=== PATIENT | male | born 1975 | race Caucasian/White ===

== ENCOUNTER → 2018-02-28 06:59 | Outpatient (CLI) | payer OTHER, SELFPAY ==
[2018-02-28 08:35] LABS: Microalbumin,Random Urine 5.2 mg/L (NO RANGE EST.); Microalbumin:Creatinine Ratio 3.4 mg/g CRE (<30 mg/g CRE)
[2018-02-28 08:38] LABS: Hemoglobin A1c 7.8 % (4.2-6.3)
[2018-02-28 08:40] LABS: AST(SGOT) 15 U/L (15-37); Alanine Aminotransfer ALT/SGPT 18 U/L (16-61); Albumin, Serum 3.6 g/dL (3.2-5.0); Alkaline Phosphatase 75 U/L (45-117); Anion Gap 6 (5-15); BUN 13 mg/dL (7-18); BUN/Creat Ratio 11.5 RATIO (10-20); Calcium,Total 8.7 mg/dL (8.5-10.1); Chloride 106 mmol/L (98-107); Cholesterol 164 mg/dL (200); Creatinine, Serum 1.13 mg/dL (0.70-1.30); EST Glomerular Filtration Rate 76 mL/min (>60); Est Glom Filt Rate - Afr Amer 92 mL/min (>60); Globulin 3.7 g/dL (2.2-4.2); Glucose 215 mg/dL (74-106); High Density Lipoprotein 47 mg/dL; Potassium 4.1 mmol/L (3.5-5.1); Protein, Total 7.3 g/dL (6.4-8.2); Sodium Level 139 mmol/L (136-145); Triglycerides 51 mg/dL; Very Low Density Lipoprotein 10 mg/dL (5-40)
== END ==
PROVIDERS: Family Provider Family Medicine; PCP Family Medicine; Visit Provider Nurse Practitioner
DX: E10.9 Type 1 diabetes mellitus without complications (principal)
CPT/HCPCS: 36415; 80053; 80061; 82043; 82306; 82570; 83036

== ENCOUNTER → 2018-05-29 06:34 | Outpatient (CLI) | payer OTHER, SELFPAY ==
[2018-05-29 07:48] LABS: ALB/GLOB Ratio 0.9 RATIO (0.9-2.4); AST(SGOT) 13 U/L (15-37); Alanine Aminotransfer ALT/SGPT 20 U/L (16-61); Albumin, Serum 3.5 g/dL (3.2-5.0); Alkaline Phosphatase 73 U/L (45-117); Anion Gap 5 (5-15); BUN 11 mg/dL (7-18); BUN/Creat Ratio 9.7 RATIO (10-20); Calcium,Total 8.6 mg/dL (8.5-10.1); Chloride 105 mmol/L (98-107); Creatinine, Serum 1.13 mg/dL (0.70-1.30); EST Glomerular Filtration Rate 76 mL/min (>60); Est Glom Filt Rate - Afr Amer 92 mL/min (>60); Globulin 3.8 g/dL (2.2-4.2); Glucose 225 mg/dL (74-106); Potassium 4.2 mmol/L (3.5-5.1); Protein, Total 7.3 g/dL (6.4-8.2); Sodium Level 139 mmol/L (136-145)
[2018-05-29 07:52] LABS: Hemoglobin A1c 7.9 % (4.2-6.3)
== END ==
PROVIDERS: Family Provider Family Medicine; PCP Family Medicine; Visit Provider Nurse Practitioner
DX: E10.9 Type 1 diabetes mellitus without complications (principal)
CPT/HCPCS: 36415; 80053; 83036

== ENCOUNTER → 2018-08-29 10:12 | Outpatient (CLI) | payer OTHER, SELFPAY | PROVIDERS: Family Provider Family Medicine; PCP Family Medicine; Referring Provider Nurse Practitioner; Visit Provider Nurse Practitioner | DX: E10.9 Type 1 diabetes mellitus without complications (principal) ==

== ENCOUNTER → 2018-12-05 06:57 | Outpatient (CLI) | payer OTHER, SELFPAY ==
[2018-09-01 08:33] VITALS: BMI 27.2
[2018-12-05 08:50] LABS: Hemoglobin A1c 8.5 % (4.2-6.3)
[2018-12-05 08:51] LABS: ALB/GLOB Ratio 0.9 RATIO (0.9-2.4); AST(SGOT) 17 U/L (15-37); Alanine Aminotransfer ALT/SGPT 24 U/L (16-61); Albumin, Serum 3.7 g/dL (3.2-5.0); Alkaline Phosphatase 79 U/L (45-117); Anion Gap 7 (5-15); BUN 16 mg/dL (7-18); BUN/Creat Ratio 13.3 RATIO (10-20); Calcium,Total 8.7 mg/dL (8.5-10.1); Chloride 105 mmol/L (98-107); Cholesterol 181 mg/dL (200); EST Glomerular Filtration Rate 71 mL/min (>60); Est Glom Filt Rate - Afr Amer 86 mL/min (>60); Globulin 3.9 g/dL (2.2-4.2); Glucose 223 mg/dL (74-106); High Density Lipoprotein 51 mg/dL; Potassium 4.3 mmol/L (3.5-5.1); Protein, Total 7.6 g/dL (6.4-8.2); Sodium Level 139 mmol/L (136-145); Triglycerides 48 mg/dL; Very Low Density Lipoprotein 10 mg/dL (5-40)
== END ==
PROVIDERS: Family Provider Family Medicine; PCP Family Medicine; Referring Provider Nurse Practitioner; Visit Provider Nurse Practitioner
DX: E10.9 Type 1 diabetes mellitus without complications (principal)
CPT/HCPCS: 36415; 80053; 80061; 83036

== ENCOUNTER → 2019-06-05 06:56 | Outpatient (CLI) | payer OTHER, SELFPAY ==
[2018-09-01 08:33] VITALS: BMI 27.2
[2019-06-05 08:15] LABS: Microalbumin,Random Urine 10.5 mg/L (NO RANGE EST.); Microalbumin:Creatinine Ratio 4.8 mg/g CRE (<30 mg/g CRE)
[2019-06-05 08:22] LABS: AST(SGOT) 13 U/L (15-37); Alanine Aminotransfer ALT/SGPT 22 U/L (16-61); Albumin, Serum 3.6 g/dL (3.2-5.0); Alkaline Phosphatase 80 U/L (45-117); Anion Gap 5 (5-15); BUN 16 mg/dL (7-18); BUN/Creat Ratio 14.2 RATIO (10-20); Calcium,Total 8.7 mg/dL (8.5-10.1); Chloride 107 mmol/L (98-107); Cholesterol 155 mg/dL (200); Creatinine, Serum 1.13 mg/dL (0.70-1.30); EST Glomerular Filtration Rate 76 mL/min (>60); Est Glom Filt Rate - Afr Amer 92 mL/min (>60); Globulin 3.7 g/dL (2.2-4.2); Glucose 142 mg/dL (74-106); High Density Lipoprotein 49 mg/dL; Protein, Total 7.3 g/dL (6.4-8.2); Sodium Level 142 mmol/L (136-145); Triglycerides 40 mg/dL; Very Low Density Lipoprotein 8 mg/dL (5-40)
[2019-06-05 08:24] LABS: Hemoglobin A1c 7.9 % (4.2-6.3)
[2019-06-07 10:17] LABS: Vitamin D,25 Hydroxy 23.6 ng/mL (29.95-100.01)
== END ==
PROVIDERS: Family Provider Family Medicine; PCP Family Medicine; Referring Provider Nurse Practitioner; Visit Provider Nurse Practitioner
DX: E11.9 Type 2 diabetes mellitus without complications (principal)
CPT/HCPCS: 36415; 80053; 80061; 82043; 82306; 82570; 83036

== ENCOUNTER → 2021-01-27 06:46 | Outpatient (CLI) | payer OTHER, SELFPAY ==
[2020-11-07 16:36] VITALS: BMI 27.8
[2021-01-27 07:46] LABS: Microalbumin,Random Urine 8.3 mg/L (NO RANGE EST.); Microalbumin:Creatinine Ratio 3.7 mg/g CRE (<30 mg/g CRE)
[2021-01-27 08:08] LABS: AST(SGOT) 18 U/L (15-37); Alanine Aminotransfer ALT/SGPT 22 U/L (16-61); Albumin, Serum 3.5 g/dL (3.2-5.0); Alkaline Phosphatase 76 U/L (45-117); Anion Gap 3 (5-15); BUN 11 mg/dL (7-18); BUN/Creat Ratio 9.9 RATIO (10-20); Calcium,Total 8.4 mg/dL (8.5-10.1); Chloride 105 mmol/L (98-107); Cholesterol 152 mg/dL (200); Creatinine, Serum 1.11 mg/dL (0.70-1.30); EST Glomerular Filtration Rate 77 mL/min (>60); Est Glom Filt Rate - Afr Amer 93 mL/min (>60); Globulin 3.4 g/dL (2.2-4.2); Glucose 123 mg/dL (74-106); High Density Lipoprotein 51 mg/dL; Protein, Total 6.9 g/dL (6.4-8.2); Sodium Level 138 mmol/L (136-145); Thyroid Stim Hormone (TSH) 2.64 uIU/mL (0.358-3.74); Triglycerides 40 mg/dL; Very Low Density Lipoprotein 8 mg/dL (5-40)
== END ==
PROVIDERS: PCP Family Medicine; Referring Provider Internal Medicine Endocrinology, Diabetes & Metabolism; Visit Provider Internal Medicine Endocrinology, Diabetes & Metabolism
DX: E10.9 Type 1 diabetes mellitus without complications (principal)
CPT/HCPCS: 36415; 80053; 80061; 82043; 82570; 84443

== ENCOUNTER → 2022-10-11 | Outpatient (CLI) | payer OTHER, SELFPAY ==
[2022-10-11 07:40] LABS: Microalbumin,Random Urine < 5.0 mg/L (NO RANGE EST.)
[2022-10-11 07:55] LABS: Vitamin D,25 Hydroxy 15.3 ng/mL
[2022-10-11 08:05] LABS: ALB/GLOB Ratio 0.9 RATIO (0.9-2.4); AST(SGOT) 14 U/L (15-37); Alanine Aminotransfer ALT/SGPT 27 U/L (16-61); Albumin, Serum 3.4 g/dL (3.2-5.0); Alkaline Phosphatase 68 U/L (45-117); Anion Gap 6 (5-15); BUN 15 mg/dL (7-18); BUN/Creat Ratio 12.8 RATIO (10-20); Calcium,Total 8.3 mg/dL (8.5-10.1); Chloride 106 mmol/L (98-107); Cholesterol 177 mg/dL (200); Creatinine, Serum 1.17 mg/dL (0.70-1.30); EST Glomerular Filtration Rate 72 mL/min (>60); Est Glom Filt Rate - Afr Amer 87 mL/min (>60); Globulin 3.8 g/dL (2.2-4.2); Glucose 140 mg/dL (74-106); High Density Lipoprotein 53 mg/dL; Potassium 3.8 mmol/L (3.5-5.1); Protein, Total 7.2 g/dL (6.4-8.2); Sodium Level 139 mmol/L (136-145); Thyroid Stim Hormone (TSH) 3.89 uIU/mL (0.358-3.74); Triglycerides 57 mg/dL; Very Low Density Lipoprotein 11 mg/dL (5-40)
== END | disposition home or self-care (01) ==
LOC: LAB 06:10
PROVIDERS: PCP Family Medicine; Referring Provider Internal Medicine Endocrinology, Diabetes & Metabolism; Visit Provider Internal Medicine Endocrinology, Diabetes & Metabolism
DX: E10.9 Type 1 diabetes mellitus without complications (principal); E55.9 Vitamin D deficiency, unspecified; Z96.41 Presence of insulin pump (external) (internal)
CPT/HCPCS: 36415; 80053; 80061; 82043; 82306; 82570; 84443

== ENCOUNTER → 2023-11-08 | Outpatient (CLI) | payer OTHER, SELFPAY ==
--- OUTSIDE RECORDS SUMMARY | 2023-11-08 07:08 | XMS RPT_ITS | CCD ---
Author Name Unknown Address [address] [facility] [address] [place] [address] Organization [facility] Care Team Providers Care [place] Records Management Officer Name Role Phone Vargas Dennis MD Primary Care Provider [phone] Vargas Dennis MD Primary Care Provider [phone] Rachel Bravo RN Unavailable Unavailable BARNEY CARMICHAEL Attending Unavailable BARNEY CARMICHAEL Primary Care Unavailable Allergies Allergy Classification Reported Allergen(s) Allergy Type Date of Onset Reaction(s) Facility (3 sources) Enalapril; Translations: [ENALAPRIL] Drug Allergy 06-09-2006 [facility] Work Phone: Medications Current Medications Medication Drug Class(es) Dates Sig (Normalized) Sig (Original) insulin lispro 100 unt/ml injectable solution (4 sources) Insulin Analog Start: 11-05-2022 End: 05-14-2024 HUMALOG U-100 INSULIN 100 unit/mL injection INJECT UP TO 100 UNITS DAILY VIA INSULIN PUMP 90 mL 1 05/15/2023 05/14/2024 Active Completed/Discontinued Medications Medication Drug Class(es) Dates Sig (Normalized) Sig (Original) acetaminophen 500 mg / diphenhydrAMINE hydrochloride 12.5 mg oral tablet (2 sources) Histamine-1 Receptor Antagonist Start: 06-13-2010 acetaminophen/dp -hydram hcl(TYLENOL SEVERE ALLERGY 12.5 MG-500 MG TAB) aspirin 81 mg oral tablet (2 sources) Platelet Aggregation Inhibitor, Nonsteroidal Anti-inflammatory Drug Start: 07-09-2005 take 1 tablet by mouth once daily ASPIRIN 81 MG ORAL TAB Take one (1) tablet daily . 0 07/09/2005 Active Problems Active Problems Problem Classification Problem Date Documented Date Episodic/Chronic Diabetes mellitus without complication (1 source) Type 1 diabetes mellitus without complications; Translations: [Diabetes mellitus type 1, controlled, without complications (HCC)] Onset: 10-31-2023 Chronic Other screening for suspected conditions (not mental disorders or infectious disease) (1 source) Encounter for screening for malignant neoplasm of colon; Translations: [Screening for colon cancer] Onset: 10-31-2023 Episodic Unclassified (2 sources) Type 1 diabetes mellitus without complication; Translations: [Uncontrolled type 1 diabetes mellitus without complication] Onset: 05-30-2016 05-30-2016 Past or Other Problems Problem Classification Problem Date Documented Da te Episodic/Chronic Abdominal pain (2 sources) Abdominal pain; Translations: [Unspecified abdominal pain] Onset: 10-28-2007 10-28-2007 Episodic Diabetes mellitus without complication (3 sources) Insulin pump present; Translations: [Presence of insulin pump (external) (internal)] Onset: 05-30-2016 05-30-2016 Episodic Other diseases of veins and lymphatics (2 sources) Varicocele; Translations: [Scrotal varices] Onset: 10-28-2007 10-28-2007 Episodic Results Test Name Value Interpretation Reference Range Facil ity Encounters Encounter Date Encounter Type Care Provider Facility Start: 10-31-2023 End: 10-31-2023 ambulatory [facility] Facility:[id number] Start: 10-31-2023 Encounter for genera l adult medical examination without abnormal findings [facility] Start: 08-21-2023 ambulatory [facility] Procedures Date Procedure Procedure Detail Performing Clinician Start: 05-06-2022 Hemoglobin A1c/Hemoglobin.total in Blood Zay Posada MD Work Phone: Start: 01-15-2021 Adult depression screening assessment Vargas Dennis MD Work Phone: Plan of Treatment Date Care Activity Detail Author Start: 05-09-2024 Urine microalbumin profile [facility] Start: 07-12-2023 Hepatitis C antibody , confirmatory test Dilated Retinal Exam [facility] Start: 06-13-2023 Covid-19 Vaccine () Covid-19 Vaccine () [facility] Start: 11-06-2022 Hemoglobin A1c/Hemoglobin.total in Blood HBA1C [facility] Start: 10-13-2022 Depression Assessment Depression Ass essment [facility] Start: 2022 Cologuard (FIT-DNA) Cologuard (FIT-D NA) [facility] Start: 2022 Colonoscopy Colonoscopy [facility] Start: 2022 Colorectal Cancer Screening Colorectal Cancer Screening [facility] Start: [address] [facility]: 2022 Fecal Occult Blood Fecal Occult Bloo d [facility] Start: 2022 Sigmoidoscopy Sigmoidoscopy [facility] Start: 06-20-2022 Hepatitis C antibody , confirmatory test DILATED RETINAL EXAM [facility] Start: 06-13-2022 Influenza vaccination INFLUENZA (#1) [facility] Start: 01-15-2022 Adult depression scr eening assessment DEPRESSION SCREENING [facility] Start: 01-15-2022 ANNUAL PCP TEAM SNOW REMOVAL/PLOWING HUDSON DISEASE VISIT ANNUAL PCP TEAM CHRONIC DISEASE VISIT [facility] Start: 04-14-2021 COVID-19 VACCINE (3 - Booster for Moderna series) COVID-19 VACCINE (3 - Booster for Moderna series) [facility] Start: 06-05-2020 Hepatitis B screening URINE AL BUMIN:CREATININE RATIO [facility] Start: 12-05-2019 Hepatitis B surface antibody level LDL CHOLESTEROL [facility] Start: 10-16-2018 3 comp foot exam completed DIABETIC FOOT EXAM [facility] Start: 1996 HEPATITIS B (1 of 3 - Risk 3-dose series) HEPATITIS B (1 of 3 - Risk 3-dose series) [facility] Start: 1995 HEPATITIS C SCREENING HEPATITIS C SC REENING [facility] Start: 1995 HIV SCREENING HIV SCREENING [facility] Start: 1983 PNEUMOCOCCAL (1 - PCV) PNEUMOCOCCAL (1 - PCV) [facility] Start: 1983 Pneumococcal vaccination Pneum ococcal Vaccine (1 - PCV) [facility] Start: 1977 Hepatitis B Vaccine (1 of 3 - 3-dose series) Hepatitis B Vaccine (1 of 3 - 3-dose series) [facility] Immunizations Immunization Date Immunization Notes Care Provider Fa demetrio 07-21-2023 influenza virus vaccine, unspecified formulation Rachel Bravo RN [facility] 07-29-2022 influenza virus vaccine, unspecified formulation Rachel Bravo RN [facility] 07-19-2021 influenza virus vaccine, unspecified formulation Vargas Dennis MD Work Phone: [facility] 11-15-2020 COVID-19 vaccine, fu ll dose (MODERNA) Vargas Dennis MD Work Phone: [facility] 10-18-2020 COVID-19 vaccine, fu ll dose (MODERNA) Vargas Dennis MD Work Phone: [facility] 05-09-2014 tetanus toxoid, reduced diphtheria toxoid, and acellular pertussis vaccine, adsorbed Vargas Dennis MD Work Phone: [facility] 08-17-2008 influenza virus vaccine, unspecified formulation Vargas Dennis MD Work Phone: [facility] Work Phone: 08-26-2007 influenza virus vaccine, unspecified formulation Vargas Dennis MD Work Phone: [facility] Work Phone: 08-14-2006 influenza virus vaccine, unspecified formulation Vargas Dennis MD Work Phone: [facility] Work Phone: 04-26-2001 diphtheria and tetan us toxoids, adsorbed for pediatric use Vargas Dennis MD Work Phone: [facility] Work Phone: Payers Date Payer Category Payer Unknown [id number] 2021 Unknown [employer] P[employer] [id number] 2021-Present [phone] [address] [place] [address] PPO [id number] 2020 Unknown [employer] [facility] [employer] [employer] [id number] 2020-Present [phone] [address] [place] [address] PPO [id number] Social History Date Type Detail Facility Start: 10-28-2007 [facility] History of tobacco use Chews Tobacco [facility] Start: 01-15-2021 Alcohol intake Current drinke r of alcohol (finding) [facility] Start: 10-28-2007 Tobacco Comment quiting 10/22/07 [facility] Start: 1975 Sex Assigned At Not on file [facility] Start: 10-28-2007 Tobacco use and exposure Smokeless tobacco non-user [facility] Work Phone: Start: 09-20-2020 End: 01-15-2021 History of Social function [facility] Start: 09-20-2020 End: 01-15-2021 Tobacco use panel [facility] Adult Depression Screening Assessment 0 [facility] Medical Equipment Procedure Code Equipment Code Equipment Origin al Text Equipment Identifier Dates Testing blood perry gars 6 times daily. Diabetes Dx 250.03 Start: 05-30-2016 Goals Date Patient Goal Desired Activity /State Personal health goal Progress note 10-31-2023 Note Date & Type Note Facility 10-31-2023 Note HNO ID: [id number] Author: BARNEY CARMICHAEL MD Service: ? Author Type: Physician Type: Progress Notes Filed: 10/31/2023 10:14 Note Text: SUBJECTIVE: Kris Damon is a 48 year old male here today for an annual physical. I reviewed his past medical, surgical, social, and family histories today and updated chart. Allergies, chronic medications, and supplements were also reviewed and his list in the chart is now up to date. Concern(s) today include: Patient establishing care today. History of type 1 diabetes and does use an insulin pump at the direction of his oleo hasher and renderer. He has a full panel of blood work done every year in October and will have this done in the next few days. He follows up routinely with his oleo hasher and renderer. No other major medical history. Takes no other routine medications. He denies any additional concerns at this time. His medications were reviewed today and his list is now up to date. He is compliant on taking his medications :Yes He is tolerating his medication(s) without side effects: Yes He is following an appropriate diet for his medical problems: Yes He is getting some exercise in? Yes Social History Tobacco Use Smoking status: Never Smokeless tobacco: Never Tobacco comments: quiting 10/22/07 Vaping Use Vaping Use: Never used Substance Use Topics Alcohol use: Yes Comment: occasionally Drug use: No Review of Systems Constitutional: Negative for chills, fatigue and fever. HENT: Negative for congestion, ear pain, postnasal drip, rhinorrhea, sinus pressure and sore throat. Respiratory: Negative for cough, chest tightness, shortness of breath and wheezing. Cardiovascular: Negative for chest pain, palpitations and leg swelling. Gastrointestinal: Negative for abdominal pain, constipation, diarrhea, nausea and vomiting. Endocrine: Negative for cold intolerance and heat intolerance. Neurological: Negative for dizziness, seizures, syncope, speech difficulty, weakness, numbness and headaches. All other systems reviewed and are negative. BP 136/82 (BP Site: Left Arm, BP Position: Sitting, BP Cuff Size: Regular Adult) Pulse 81 Ht 177.8 cm (5' 10 ) Wt 85.7 kg (189 lb) SpO2 98% BMI 27.12 kg/m? Physical Exam Vitals and nursing note reviewed. Constitutional: Appearance: He is well-developed. Cardiovascular: Rate and Rhythm: Normal rate and regular rhythm. Heart sounds: Normal heart sounds. Pulmonary: Effort: Pulmonary effort is normal. Breath sounds: Normal breath sounds. No wheezing or rales. ASSESSMENT/PLAN: 1. Well adult exam - ICD9: V70.0, ICD10: Z00.00 (primary diagnosis) - Counseled on healthy diet and regular exercise - Will obtain labs from his oleo hasher and renderer, health maintenance current, ordered cologuard - Follow up for annual exam in one year 2. Diabetes mellitus type 1, controlled, without complications (HCC) - ICD9: 250.01, ICD10: E10.9 - Mgmt per endo 3. Insulin pump status - ICD9: V45.85, ICD10: Z96.41 4. Screening for colon cancer - ICD9: V76.51, ICD10: Z12.11 - COLOGUARD This dictation was completed with the assistance of voice recognition, phonetic or minor grammatical errors may exist. Barney Carmichael MD [facility] Progress note 08-26-2023 Note Date & Type Note Facility 08-26-2023 Note HNO ID: [id number] Author: Rachel Bravo RN Service: ? Author Type: Registered Nurse Type: Progress Notes Filed: 08/26/2023 11:25 AM Note Text: Kris Damon is a 48 year old male who presents for a Direct Primary Care Organizing Visit. Complaints: denies any complaints at this time Explained DPC Program: Yes Reviewed Contract: Yes Vitals Completed: There were no vitals taken for this visit. PAST MEDICAL HISTORY Diagnosis Date Type I (juvenile type) diabetes mellitus without mention of complication, uncontrolled (HCC) Health Maintenance: Hepatitis B Vaccine(1 of 3 - 3-dose series) Never done Pneumococcal Vaccine(1 - PCV) Never done Hepatitis C Screening Never done HIV Screening Never done Diabetic Foot Exam due on 10/16/2018 LDL Cholesterol due on 12/05/2019 Urine Albumin:Creatinine Ratio due on 06/05/2020 Annual PCP Team Chronic Disease Visit due on 01/15/2022 Colorectal Cancer Screening Never done Depression Assessment Never done HbA1C due on 11/06/2022 Covid-19 Vaccine() due on 06/13/2023 Dilated Retinal Exam due on 07/12/2023 Current Outpatient Medications Medication Sig Dispense Refill loratadine (CLARITIN) 10 mg tablet Take 10 mg by mouth once daily. HUMALOG U-100 INSULIN 100 unit/mL injection INJECT UP TO 100 UNITS DAILY VIA INSULIN PUMP 90 mL 1 HUMALOG U-100 INSULIN 100 unit/mL injection USES UP TO 100 UNITS A DAY VIA INSULIN PUMP 90 mL 1 insulin lispro (HUMALOG) 100 unit/mL injection use in insulin pump up to 60 units daily Dx 250.03 6 Vial 3 blood sugar diagnostic (CONTOUR NEXT STRIPS) test strip Testing blood sugars 6 times daily. Diabetes Dx 250.03 600 Each 4 Insulin Pump Syringe (PARADIGM RESERVOIR) 1.8 mL misc [id number] Change site every 3 daysjscript:void(0) 30 Each 4 Infusion Set for Insulin Pump (QUICK-SET PARADIGM) iset MMT-399 Change site every 3 days 30 Each 4 ASPIRIN 81 MG ORAL TAB Take one (1) tablet daily . 0 valsartan (DIOVAN) 80 mg tablet Take 1 tablet by mouth once daily. (Patient not taking: Reported on 08/26/2023) 90 tablet 3 pravastatin (PRAVACHOL) 10 mg tablet Take 1 tablet by mouth daily at bedtime. (Patient not taking: Reported on 08/26/2023) 90 tablet 3 acetaminophen/dp-hydram hcl(TYLENOL SEVERE ALLERGY 12.5 MG-500 MG TAB) (Patient not taking: Reported on 08/26/2023) 0 No current facility-administered medications for this visit. Pharmacy Updated and Verified: Yes Personalized Goals: Goals Blood Pressure < 130/80 Confirm medication adherence of all prescribed medications and uses them correctly Hemoglobin A1C < 7 LDL at or below 100 mg/dL or on a high statin Spoke with patient via phone and reviewed medications, allergies and pharmacy choices. Patient's previus PCP was Dr. Dennis and patient also follows with Dr. Jair Posada at [facility]. Patient does have an insulin pump with supplies and states he is working with a rep from [facility] to get his medications sent to the [facility] pharmacy and his pump supplies sent to a DME provider in Network with the updated [facility] insurance. All of this is set to record changer tester to updated suppliers/pharmacy on 10/13/23. Patient denies urgent needs/concerns and states his insulin and pump supplies are ordered through Endocrinology. Patient scheduled to establish wit Dr. Carmichael on 10/31/23. Rachel Bravo RN [facility] Progress note 08-21-2023 Note Date & Type Note Facility 08-21-2023 Note HNO ID: [id number] Author: Rachel Bravo RN Service: ? Author Type: Registered Nurse Type: Progress Notes Filed: 08/21/2023 1:46 PM Note Text: Call placed to patient to complete DPC Organizing Visit and schedule an establishing appointment with Dr. Carmichael. Message left for patient with a request for return call. [facility] Clinical Note 08-21-2023 Note Date & Type Note Facility 08-21-2023 Note Patient Outreach ([facility]) KRIS DAMON ([id number]) 1975 M [facility] Date Time Provider Department 08/21/23 RACHEL BRAVO During your visit today, we recorded the following information about you: Rachel Bravo RN 08/21/2023 1:46 PM Signed Call placed to patient to complete DPC Organizing Visit and schedule an establishing appointment with Dr. Carmichael. Message left for patient with a request for return call. Rachel Bravo RN 08/26/2023 11:25 AM Signed Kris Damon is a 48 year old male who presents for a Direct Primary Care Organizing Visit. Complaints: denies any complaints at this time Explained DPC Program: Yes Reviewed Contract: Yes Vitals Completed: There were no vitals taken for this visit. PAST MEDICAL HISTORY Diagnosis Date Type I (juvenile type) diabetes mellitus without mention of complication, uncontrolled (HCC) Health Maintenance: Hepatitis B Vaccine(1 of 3 - 3-dose series) Never done Pneumococcal Vaccine(1 - PCV) Never done Hepatitis C Screening Never done HIV Screening Never done Diabetic Foot Exam due on 10/16/2018 LDL Cholesterol due on 12/05/2019 Urine Albumin:Creatinine Ratio due on 06/05/2020 Annual PCP Team Chronic Disease Visit due on 01/15/2022 Colorectal Cancer Screening Never done Depression Assessment Never done HbA1C due on 11/06/2022 Covid-19 Vaccine() due on 06/13/2023 Dilated Retinal Exam due on 07/12/2023 Current Outpatient Medications Medication Sig Dispense Refill loratadine (CLARITIN) 10 mg tablet Take 10 mg by mouth once daily. HUMALOG U-100 INSULIN 100 unit/mL injection INJECT UP TO 100 UNITS DAILY VIA INSULIN PUMP 90 mL 1 HUMALOG U-100 INSULIN 100 unit/mL injection USES UP TO 100 UNITS A DAY VIA INSULIN PUMP 90 mL 1 insulin lispro (HUMALOG) 100 unit/mL injection use in insulin pump up to 60 units daily Dx 250.03 6 Vial 3 blood sugar diagnostic (CONTOUR NEXT STRIPS) test strip Testing blood sugars 6 times daily. Diabetes Dx 250.03 600 Each 4 Insulin Pump Syringe (PARADIGM RESERVOIR) 1.8 mL misc [id number] Change site every 3 daysjscript:void(0) 30 Each 4 Infusion Set for Insulin Pump (QUICK-SET PARADIGM) iset MMT-399 Change site every 3 days 30 Each 4 ASPIRIN 81 MG ORAL TAB Take one (1) tablet daily . 0 valsartan (DIOVAN) 80 mg tablet Take 1 tablet by mouth once daily. (Patient not taking: Reported on 08/26/2023) 90 tablet 3 pravastatin (PRAVACHOL) 10 mg tablet Take 1 tablet by mouth daily at bedtime. (Patient not taking: Reported on 08/26/2023) 90 tablet 3 acetaminophen/dp-hydram hcl(TYLENOL SEVERE ALLERGY 12.5 MG-500 MG TAB) (Patient not taking: Reported on 08/26/2023) 0 No current facility-administered medications for this visit. Pharmacy Updated and Verified: Yes Personalized Goals: Goals Blood Pressure < 130/80 Confirm medication adherence of all prescribed medications and uses them correctly Hemoglobin A1C < 7 LDL at or below 100 mg/dL or on a high statin Spoke with patient via phone and reviewed medications, allergies and pharmacy choices. Patient's previus PCP was Dr. Dennis and patient also follows with Dr. Jair Posada at [facility]. Patient does have an insulin pump with supplies and states he is working with a rep from [facility] to get his medications sent to the [facility] pharmacy and his pump supplies sent to a DME provider in [place] with the updated [facility] insurance. All of this is set to record changer tester to updated suppliers/pharmacy on 10/13/23. Patient denies urgent needs/concerns and states his insulin and pump supplies are ordered through Endocrinology. Patient scheduled to establish wit Dr. Carmichael on 10/31/23. Rachel Bravo RN Allergies As of Date: 08/21/2023 Noted Allergy Reaction ENALAPRIL 06/09/2006 Comments: cough, recurs on rechallenge Date Reviewed: 01/15/2021 Reviewed by: Diana Veras MA - Fully Assessed Reason for Visit: DPC Organizing Visit [Other] Prescriptions as of 08/26/2023 - loratadine (CLARITIN) 10 mg tablet Take 10 mg by mouth once daily. - HUMALOG U-100 INSULIN 100 unit/mL injection INJECT UP TO 100 UNITS DAILY VIA INSULIN PUMP - HUMALOG U-100 INSULIN 100 unit/mL injection USES UP TO 100 UNITS A DAY VIA INSULIN PUMP - insulin lispro (HUMALOG) 100 unit/mL injection use in insulin pump up to 60 units daily Dx 250.03 - valsartan (DIOVAN) 80 mg tablet Take 1 tablet by mouth once daily. - pravastatin (PRAVACHOL) 10 mg tablet Take 1 tablet by mouth daily at bedtime. - blood sugar diagnostic (CONTOUR NEXT STRIPS) test strip Testing blood sugars 6 times daily. Diabetes Dx 250.03 - Insulin Pump Syringe (PARADIGM RESERVOIR) 1.8 mL misc [id number]-326A Change site every 3 daysjscript:void(0) - Infusion Set for Insulin Pump (QUICK-SET PARADIGM) iset MMT-399 Change site every 3 days - (more content not included)... [facility] History of Present illness Narrative 08-21-2023 Rachel Bravo RN - 08/21/2023 1:44 PM EST Note Date & Type Note Facility 08-21-2023 History of Presen t illness Narrative Call placed to patient to complete DPC Organizing Visit and schedule an establishing appointment with Dr. Carmichael. Message left for patient with a request for return call. documented in this encounter [facility] Progress note 05-09-2022 Note Date & Type Note Facility 05-09-2022 Note HNO ID: [id number] Author: Diana Veras Ma Service: ? Author Type: ? Type: Progress Notes Filed: 05/17/2022 8:18 AM Note Text: Updated A1c POCT completed at visit. Scan on 05/09/2022 10:08 AM by External Provider: Consultation - Endocrinology Diana Veras Ma [facility] History of Present illness Narrative 05-09-2022 Diana Veras Ma - 05/09/2022 2:20 PM EDT Note Date & Type Note Facility 05-09-2022 History of Presen t illness Narrative Updated A1c POCT completed at visit. Scan on 05/09/2022 10:08 AM by External Provider: Consultation - Endocrinology Diana Veras Ma documented in this encounter [facility] History of Past illness Narrative 05-30-2016 Note Date & Type Note Facility documented as of this encounter (statuses as of 05/17/2022) [facility] History of Past illness Narrative 05-30-2016 Note Date & Type Note Facility documented as of this encounter (statuses as of 08/22/2023) [facility] Summary Purpose Family History No Family History Records FoundNo Family History Records Found Advance Directives No Advanced Directives Records FoundNo Advanced Directives Records Found Additional Source Comments Source Comments (unrecognize d section and content) In the event this informatio n is protected by the Federal Confidentiality of Alcohol and Drug Abuse Patient Records regulations: The Federal rules restrict any use of the information to criminally investigate or prosecute any alcohol or drug abuse patient.[facility] the event this information is protected by the Federal Confidentiality of Alcohol and Drug Abuse Patient Records regulations: The Federal rules restrict any use of the information to criminally investigate or prosecute any alcohol or drug abuse patient.[facility] Reason for Visit (unrecogniz ed section and content) Reason Onset Date Comments DPC Organizing Visit 08/21/2023 Care Teams (unrecognized sec tion and content) County Records Management Officer Relationship Specialty Start Date End Date Vargas Dennis MD [address] [place] [address] PCP - General Family Medicine 12/30/11 Rachel Bravo, DALJIT Nurse Navigator 08/21/23 (unrecognized sect ion and content) No Status Records FoundNo Status Records Found INFORMATION SOURCE (unrecogn ized section and content) DATE CREATED AUTHOR AUTHOR'S ORGANIZ ATION 11/01/2023 [facility] FOR RECORDS PERTAINING TO PATIENTS WHO ARE OR HAVE BEEN ENROLLED IN A CHEMICAL DEPENDENCY/SUBSTANCEABUSE PROGRAM, SOME INFORMATION MAY BE OMITTED. This clinical summary was aggregated from multiple sources. Caution should be exercised in using it in the provision of clinical care. This summary normalizes information from multiple sources, and as a consequence, information in this document may materially change the coding, format and clinical context of patient data. In addition, data may be omitted in some cases. CLINICAL DECISIONS SHOULD BE BASED ON THE PRIMARY CLINICAL RECORDS. [facility]. provides no warranty or guarantee of the accuracy or completeness of information in this document.
[2023-11-08 08:12] LABS: ALB/GLOB Ratio 0.9 RATIO (0.9-2.4); AST(SGOT) 42 U/L (15-37); Alanine Aminotransfer ALT/SGPT 27 U/L (16-61); Albumin, Serum 3.4 g/dL (3.2-5.0); Alkaline Phosphatase 73 U/L (45-117); Anion Gap 3 (5-15); BUN 13 mg/dL (7-18); BUN/Creat Ratio 11.9 RATIO (10-20); Calcium,Total 8.6 mg/dL (8.5-10.1); Chloride 106 mmol/L (98-107); Cholesterol 188 mg/dL (200); Creatinine, Serum 1.09 mg/dL (0.70-1.30); EST Glomerular Filtration Rate 77 mL/min (>60); Est Glom Filt Rate - Afr Amer 94 mL/min (>60); Globulin 3.6 g/dL (2.2-4.2); Glucose 153 mg/dL (74-106); High Density Lipoprotein 54 mg/dL; Potassium 3.8 mmol/L (3.5-5.1); Sodium Level 136 mmol/L (136-145); Thyroid Stim Hormone (TSH) 2.13 uIU/mL (0.358-3.74); Triglycerides 50 mg/dL; Very Low Density Lipoprotein 10 mg/dL (5-40)
[2023-11-10 14:25] LABS: Microalbumin:Creatinine Ratio 13.8 mg/g CRE (<30 mg/g CRE)
== END | disposition home or self-care (01) ==
PROVIDERS: PCP Family Medicine; Referring Provider Internal Medicine Endocrinology, Diabetes & Metabolism; Visit Provider Internal Medicine Endocrinology, Diabetes & Metabolism
DX: E10.9 Type 1 diabetes mellitus without complications (principal)
CPT/HCPCS: 36415; 80053; 80061; 82043; 82570; 84443

== ENCOUNTER → 2024-12-18 | Outpatient (CLI) | payer OTHER, SELFPAY ==
[2024-12-18 08:19] LABS: Absolute Neutrophil Count 3.8 X10^3/uL (2.0-7.7); Basophil# 0.06 X10^3/uL; Basophil% 0.8 % (0-1); Eosinophil# 0.25 X10^3/uL; Eosinophils% 3.2 % (0-5); Hematocrit 44.5 % (40-54); Hemoglobin 14.8 g/dL (13.0-16.5); Lymphocyte % 38.8 % (19-41); Mean Corp Hgb Conc 33.3 g/dL (32-36); Mean Corpuscular Hgb 29.5 pg (27.0-32.0); Mean Corpuscular Volume 88.8 fL (80-94); Mean Platelet Vol. 12.1 fl (6.2-12.0); Monocyte# 0.59 X10^3/uL; Monocyte% 7.6 % (0-10); NRBC Flagged by Analyzer 0 % (0-5); Neutrophil # 3.81 X10^3/uL (2.7-7.7); Neutrophil % 49.2 % (47-70); Platelet Count 291 K/mm3 (150-450); RBC Distribution Width CV 12.5 % (11.6-14.6); RBC Distribution Width SD 40.9 fl (35.1-43.9); Red Blood Count 5.01 M/mm3 (4.6-6.2); White Blood Count 7.7 K/mm3 (4.4-11.0)
[2024-12-18 11:20] LABS: ALB/GLOB Ratio 1.4 RATIO (0.9-2.4); AST(SGOT) 22 U/L (<=37); Alanine Aminotransfer ALT/SGPT 16 U/L (<=46); Alkaline Phosphatase 73 U/L (40-129); Anion Gap 13 (5-15); BUN 12 mg/dL (4-19); BUN/Creat Ratio 9.2 RATIO (10-20); Calcium,Total 8.8 mg/dL (7.6-11.0); Carbon Dioxide 22.5 mmol/L (21.0-32.0); Chloride 103 mmol/L (98-108); Cholesterol 146 mg/dL (<=200); Creatinine, Serum 1.26 mg/dL (0.70-1.20); EST Glomerular Filtration Rate 71 (>60); Globulin 2.9 g/dL (2.2-4.2); Glucose 109 mg/dL (70-99); High Density Lipoprotein 50 mg/dL; Low Density Lipoprotein Calc. 88 mg/dL; Potassium 4.1 mmol/L (3.3-5.1); Protein, Total 6.9 g/dL (5.9-8.4); Sodium Level 138 mmol/L (133-145); Total Bilirubin 0.97 mg/dL (0.00-1.30); Triglycerides 40 mg/dL; Very Low Density Lipoprotein 8 mg/dL (5-40); cholesterol:hdl ratio screen 2.91
[2024-12-18 12:19] LABS: Vitamin D,25 Hydroxy 24.3 ng/mL (30-100)
[2024-12-18 14:04] LABS: Microalbumin,Random Urine < 12.0 mg/L (NO RANGE EST.); Microalbumin:Creatinine Ratio UNABLE TO CALCULATE mg/g CRE
== END | disposition home or self-care (01) ==
PROVIDERS: PCP Family Medicine; Referring Provider Internal Medicine Endocrinology, Diabetes & Metabolism; Visit Provider Internal Medicine Endocrinology, Diabetes & Metabolism
DX: E10.9 Type 1 diabetes mellitus without complications (principal); Z96.41 Presence of insulin pump (external) (internal); I10 Essential (primary) hypertension; E78.2 Mixed hyperlipidemia
CPT/HCPCS: 36415; 80053; 80061; 82043; 82306; 82570; 84443; 85025